=== PATIENT | male | born 1965 | race Hispanic/Latino ===

== ENCOUNTER 2018-06-14 12:58 | Emergency (ER) | payer BC, SELFPAY ==
[2018-06-14 12:59] VITALS: BP 159/83; PULSE 84; RESP 18; TEMP 36.4; O2SAT 99; BMI 42.5
--- NOTE | 2018-06-14 13:46 | CT_ITS ---
STUDY: CT ABDOMEN AND PELVIS WITHOUT CONTRAST REASON FOR EXAM: Male, 53 years old. Abdominal pain and nausea x2 days RADIATION DOSAGE (If Supplied By Facility): CTDIvol = ( 14.80 ) mGy, DLP = ( 844.46 ) mGycm TECHNIQUE: Transaxial images were obtained from the dome of the diaphragm to the symphysis pubis without oral contrast, and without intravenous contrast. Sagittal and coronal images were reconstructed. Individualized dose optimization techniques were used for this CT. COMPARISON: None. FINDINGS: There are chronic interstitial fibrotic changes of the lung bases. The visualized portions of the heart are within normal limits. There is decreased attenuation of the liver consistent with steatosis. Normal gallbladder and extrahepatic biliary system. Normal spleen. Normal pancreas. Normal bilateral adrenal glands. Normal right kidney. Normal left kidney. Normal visualized stomach. Normal small intestine. Scattered colonic diverticulosis noted. There is thickening of the mid sigmoid colon with pericolonic inflammation consistent with acute reticulitis. No perforation or abscess noted. An underlying lesion however cannot be excluded due to the thickening of the sigmoid and further evaluation with colonoscopy would be recommended once the acute inflammatory changes have resolved. There is non-visualization of the appendix. Normal abdominal aorta. Normal inferior vena cava. Normal retroperitoneum. Normal urinary bladder. Small fat-containing inguinal hernias noted. Normal osseous structures. CT/Abdomen/Pelvis without Cont IMPRESSION: Acute sigmoid diverticulitis Diffuse fatty infiltration of the liver, no discrete lesion N.B. : The above information has been verbally conveyed by Andrés Kang MD to Manuela Watson, Covering Physician, on 06/14/2018 15:14:52 (ET). Electronically Signed: Andrés Kang MD at 15:15 EDT , Service support ,
--- NOTE | 2018-06-14 13:49 | ED.DCSUM_ITS ---
- ER Visit Summary Date of Service: 06/14/18 Chief Complaint: [Abdominal pain] History of Present Illness: The patient is a 53 M [who presents the emergency department with 2 days of lower abdominal pain. Bowel movements have been normal no nausea or vomiting no fevers or chills. He has had similar symptoms in the past that have been mild but this 1 seems to be more severe. He did have an episode 1 month ago where he had a infection where he have to go to the bathroom, it was treated and went away.] Physical Examination: [] Pressure 159/83 WN WD NAD PERRL EOMI MMM NECK supple and nontender, no masses RRR no murmur rub or gallop, no peripheral edema, symmetric radial pulses CTAB no respiratory distress ABDOMEN is soft, he has suprapubic and left lower quadrant tenderness to palpation, normal bowel sounds, no distension, no rebound or guarding SKIN is warm and dry no rashes Alert and Oriented x3, CN II-XII in tact, no motor or sensory deficits, gait normal No lymphadenopathy Test Results: [] Emergency Department Course and Treatment: [] Treatment Plan: [] Disposition: [] Impression: [] This note was generated with [employer] dictation software. It may contain incorrect words, spelling, and punctuation that were not noted in review of the chart prior to signing ED Disposition - Plan for ED Patient: Chief Complaint: Abd Pain Referrals: Care Physician,No Primary [Primary Care Provider] -
[2018-06-14] MEDS: 0.9% Normal Saline 1,000 ML 1000 ML IV (14:22)
[2018-06-14] MEDS: Ketorolac 30 MG/ML Syringe IV (14:22)
[2018-06-14] MEDS: Ondansetron 4 MG/2 ML Vial IV (14:22)
[2018-06-14 14:23] LABS: Absolute Lymphocyte Count 1.14 X10^3/ul (0.83-4.51); Absolute Neutrophil Count 3.5 X10^3/uL (2.0-7.7); Basophil# 0.02 X10^3/uL; Basophil% 0.4 % (0-1); Eosinophil# 0.08 X10^3/uL; Eosinophils% 1.5 % (0-5); Hematocrit 47.3 % (40-54); Lymphocyte # 1.14 X10^3/ul (4.0); Lymphocyte % 21.3 % (19-41); Mean Corp Hgb Conc 33.8 g/gl (32-36); Mean Corpuscular Hgb 31.8 pg (27.0-32.0); Mean Platelet Vol. 10.3 fl (6.2-12.0); Monocyte% 11.2 % (0-10); Neutrophil # 3.49 X10^3/uL (2.7-7.7); Neutrophil % 65.4 % (47-70); Platelet Count 167 K/mm3 (150-450); RBC Distribution Width CV 12.7 % (11.6-14.6); RBC Distribution Width SD 43.6 fl (35.1-43.9); Red Blood Count 5.03 M/mm3 (4.6-6.2); White Blood Count 5.3 K/mm3 (4.4-11.0)
[2018-06-14 14:30] LABS: POSITIVE COUNT NO; POSITIVE DIFFERENTIAL NO; POSITIVE MORPHOLOGY NO
[2018-06-14 14:39] LABS: ALB/GLOB Ratio 0.7 RATIO (0.9-2.4); AST(SGOT) 28 U/L (15-37); Alanine Aminotransfer ALT/SGPT 51 U/L (16-61); Albumin, Serum 3.3 g/dL (3.2-5.0); Alkaline Phosphatase 75 U/L (45-117); Anion Gap 7 (5-15); BUN 11 mg/dL (7-18); BUN/Creat Ratio 15.2 RATIO (10-20); Calcium,Total 8.6 mg/dL (8.5-10.1); Chloride 106 mmol/L (98-107); Creatinine, Serum 0.72 mg/dL (0.70-1.30); EST Glomerular Filtration Rate 122 mL/min (>60); Est Glom Filt Rate - Afr Amer 147 mL/min (>60); Estimated Creatinine Clearance 117.43 ml/min; Globulin 4.8 g/dL (2.2-4.2); Glucose 89 mg/dL (74-106); Lipase 151 U/L (73-393); Protein, Total 8.1 g/dL (6.4-8.2); Sodium Level 140 mmol/L (136-145)
--- NOTE | 2018-06-14 15:18 | ED.DEP ---
ED Disposition - Plan for ED Patient: Chief Complaint: Abd Pain Instructions: ED Diverticulitis Prescriptions: Hydrocodone Bitart/Apap 5-325 [[place] 5MG-325MG] 1 tablet PO Q6H PRN PRN 3 Days #7 tablet PRN Reason: Pain Metronidazole [Flagyl] 500 mg PO Q8H 10 Days tablet Ciprofloxacin [Cipro] 500 mg PO BID #20 tablet Referrals: Your, doctor [Other] - 3-5 Days
--- NOTE | 2018-06-14 15:21 | DCINST.ED_ITS ---
ED Disposition - Plan for ED Patient: Chief Complaint: Abd Pain Instructions: ED Diverticulitis Prescriptions: Hydrocodone Bitart/Apap 5-325 [[place] 5MG-325MG] 1 tablet PO Q6H PRN PRN 3 Days # 7 tablet PRN Reason: Pain Metronidazole [Flagyl] 500 mg PO Q8H 10 Days tablet Ciprofloxacin [Cipro] 500 mg PO BID #20 tablet Referrals: Your, doctor [Other] - 3-5 Days
[2018-06-14 15:41] VITALS: BP 137/93; PULSE 79; RESP 16; O2SAT 100
== END 2018-06-14 15:44 | disposition home or self-care (01) ==
PROVIDERS: Emergency Provider Emergency Medicine
DX: K57.32 Diverticulitis of large intestine without perforation or abscess without bleeding (principal); E66.9 Obesity, unspecified
CPT/HCPCS: 74176; 80053; 83690; 85025; 96361; 96374; 96375; 99283; J7030; A4216; J2405

== ENCOUNTER → 2019-03-21 | Outpatient (CLI) | payer OTHER, SELFPAY ==
[2019-03-21 15:50] VITALS: BMI 40.3
--- NOTE | 2019-03-21 16:01 | RAD_ITS ---
STUDY: X-RAY - RIGHT KNEE REASON FOR EXAM: Male, 53 years old. Pain. Injury. TECHNIQUE: 4 view(s) of the knee. COMPARISON: None. FINDINGS: Normal visualized distal femur. Normal visualized proximal tibia and fibula. Normal proximal tibiofibular articulation. There is severe degenerative arthrosis of the medial femorotibial compartment with severe joint space narrowing. There is mild degenerative arthrosis of the lateral femorotibial compartment. There is moderate degenerative arthrosis of the patellofemoral articulation. There is a moderate volume joint effusion. The soft tissue structures are unremarkable. RAD/Knee 4 or More Views IMPRESSION: Degenerative arthrosis. Joint effusion. Electronically Signed: Marybeth Graham MD at 16:23 EDT Tel , Service support ,
== END | disposition home or self-care (01) ==
LOC: HPRAD 15:58
PROVIDERS: Referring Provider Physician Assistant; Visit Provider Physician Assistant
DX: M25.561 Pain in right knee (principal)
CPT/HCPCS: 73564

== ENCOUNTER 2020-01-09 18:34 | Emergency (ER) | payer OTHER, SELFPAY ==
[2019-03-28 15:01] VITALS: BMI 40.3
[2020-01-09 18:53] VITALS: BP 158/98; PULSE 85; RESP 17; TEMP 36.4; O2SAT 95; BMI 40.7
[2020-01-09 19:19] VITALS: RESP 16
--- NOTE | 2020-01-09 19:47 | ED.RN ---
pt works for [employer]. They require a drug screen and follow up is with [facility]. [facility] was made aware.
[2020-01-09] MEDS: Diphth,Pertuss(Acell),Tet Vac 0.5 ML Vial IM (20:54)
--- NOTE | 2020-01-09 21:59 | ED.VISSUMM ---
- ER Visit Summary Date of Service: 01/09/20 Chief Complaint: Left hand laceration History of Present Illness: The patient is a 54 M who presents with a left hand laceration that occurred today while at work. Patient was using a saw and accidentally cut his left hand. Patient is right-hand dominant. Patient describes his pain as aching. Patient denies any paresthesias or weakness. Patient is unsure of his last tetanus. Patient denies any other injuries. Physical Examination: Vital signs are stable. Patient is afebrile. Patient is in no acute distress. Musculoskeletal exam reveals a 6 cm full-thickness linear laceration over the dorsal aspect of the left hand. The wound was explored. There are no foreign bodies noted. There are no tendon lacerations. There is no bony involvement. Sensation was intact to light touch in all digits. Capillary refill was less than 2 seconds in all digits. Strength is 5/5 in flexion and extension of the MP, PIP, and DIP joints of the left index finger and left thumb. Emergency Department Course and Treatment: The wound was cleaned and irrigated with copious amounts normal saline. The wound was anesthetized 1% lidocaine with epinephrine. The wound was closed with 5 simple interrupted #4-0 horizontal mattress sutures under sterile technique. Patient was given a dose of Keflex. Patient was given a prescription for Keflex. Patient was instructed to keep the wound clean and dry. Patient was instructed to follow-up with his primary care physician in 7 days for wound recheck and suture removal. Patient understood and was agreeable with the plan. All questions were answered. Disposition: Discharge home Impression: Left hand laceration This note was generated with [employer] dictation software. It may contain incorrect words, spelling, and punctuation that were not noted in review of the chart prior to signing ED Disposition - Plan for ED Patient: Disposition: Home or Assisted Living Diagnosis: Laceration of left hand Instructions: LACERATION, Extrem (Suture, Staple or Tape) Prescriptions: Cephalexin [Keflex] 500 mg PO Q6 #40 cap Prescription Printed Referrals: Care Physician,No Primary [Primary Care Provider] - [facility] [GROUP OF PHYSICIANS] - 7 Days for suture removal
[2020-01-09] MEDS: Cephalexin 250 MG Capsule 500 MG PO (22:08)
[2020-01-09 22:11] VITALS: RESP 16
== END 2020-01-09 22:12 | disposition home or self-care (01) ==
PROVIDERS: Emergency Provider Emergency Medicine
DX: S61.412A Laceration without foreign body of left hand, initial encounter (principal); M54.9 Dorsalgia, unspecified; R51 Headache; E66.9 Obesity, unspecified; W27.0XXA Contact with workbench tool, initial encounter; Y93.9 Activity, unspecified; Y92.9 Unspecified place or not applicable
CPT/HCPCS: 12002; 90471; 90715; 99285

== ENCOUNTER → 2023-10-31 | Outpatient (CLI) | payer BC, SELFPAY ==
[2023-10-31 17:21] LABS: Bacteria 0 SEEN /hpf (None Seen); Mucous, Urine 0 SEEN /hpf (<or=2+); Red Blood Cells-Urine 0 SEEN /hpf (0-5); Squamous Epithelial Cells - UA 0 SEEN /hpf (0-5); White Blood Cells 0 SEEN /hpf (0-5)
[2023-10-31 17:45] LABS: Color, Urine Yellow (Yellow); Glucose, Dipstick Normal (Normal); Ketone-Dipstick Negative (Negative); Leukocyte Esterase-Dipstick Negative /ul (Negative); Nitrite-Dipstick Negative (Negative); Occult Blood-Urine Negative /ul (Negative); Protein-Dipstick Negative (Negative); Urine Bilirubin Dipstick Negative (Negative); Urine Clarity Clear (Clear); Urine Urobilinogen Normal (Normal)
== END | disposition home or self-care (01) ==
PROVIDERS: Visit Provider Physician Assistant
DX: R30.0 Dysuria (principal)
CPT/HCPCS: 81001; 87086

== ENCOUNTER → 2023-11-16 | Outpatient (CLI) | payer BC, SELFPAY ==
[2023-11-16 18:12] LABS: Hemoglobin A1c 5.4 % (3.8-5.6)
== END | disposition home or self-care (01) ==
PROVIDERS: Referring Provider Physician Assistant Surgical; Visit Provider Physician Assistant Surgical
DX: R30.0 Dysuria (principal)
CPT/HCPCS: 36415; 83036; 87086; 87088

== ENCOUNTER 2024-02-20 06:56 | Day surgery (SDC) | payer BC, SELFPAY ==
--- NOTE | 2024-02-20 07:10 | H&P.OPEN ---
[facility] - General General Date of Service: 02/20/24 HPI Narrative JERRI CASILLAS, is a 58 M who presents for screening colonoscopy. Patient is German-speaking, patient's niece interprets and his sister is also present. Patient has never had previous colonoscopy. Patient denies any family history of colon cancer. Patient has bowel movements daily to every other day denies any blood. Patient denies any chronic abdominal pain/nausea/vomiting/reflux. Patient did have hemorrhoids which sound like they were previously banded-otherwise no other abdominal surgeries. [facility] Medical History (Updated 02/17/24 @ 14:06 by Anastasia Bhandari) Acute hemorrhoid Acute sinusitis Arthritis Blunt injury, left eye Chronic neck and back pain Conjunctivitis, left eye Contact with or suspected exposure to other viral communicable disease Depression Dysuria Infected pilonidal cyst Knee pain Leg cramps Limb weakness Migraine headache Non-Albanian speaking patient Non-smoker Seizures Shoulder pain Home Medications NK 01/04/24 [History Last Taken Unknown] Allergy/AdvReac Type Severity Reaction Status Date / Time No Known Allergies Allergy Verified 02/20/24 07:22 Surgical History (Updated 02/17/24 @ 13:43 by Anastasia Bhandari) No pertinent past surgical history Social History (Updated 01/04/24 @ 09:02 by Nette Mc) household members: family current occupational status: employed Smoking Status: Never smoker alcohol intake: former substance use type: does not use Past Medical/Surgical History Planned Operation Planned Operative Procedure/s: COLONOSCOPY Previous Hospitalizations/Surgeries HX Hospitalizations: No Any Problems With Anesthesia: No You/Your Family Experience Fever (Hyperthermia) With Anes: No Cholinesterase deficiency: No Cardiovascular Hx Hypertension: No Respiratory Hx Sleep Apnea: No Hx Respiratory Tract Infection/Cold (presently): No Do You Snore Loudly (louder than talking or can be heard): Yes Do You Often Feel Tired/ Fatigued/ Sleepy Dring Daytime?: No Has Anyone Observed You Stop Breathing During Sleep?: No Result (for STOP score): Negative Smoking Status: Never smoker Neurological Does patient have nerve stimulator: No Allergies No Known Allergies Allergy (Verified 02/20/24 07:22) Discharge Is Pt Admitted From a Prison, or a Retirement: No Who Could Help: NIECE After D/C, Where Do you Plan to Go: Return Home Physical Exam Const alert, oriented x3 and no apparent distress HEENT normocephalic and head/scalp atraumatic Resp normal respiratory effort Cardio regular rate GI soft to palpation and non-tender; Negative for non-distended Palpation: Negative for guarding Extremity no clubbing, cyanosis or edema Skin no rashes or lesions noted Neuro CN's II-XII intact bilaterally Psych mental status grossly normal Assessment & Plan Assessment/Plan (1) Encounter for screening for malignant neoplasm of colon: Surgery Risks - Colonoscopy I discussed with the patient the risks of the procedure: Yes Risks Include but are not Limited To: Risks include but are not limited to: Bleeding, perforation requiring further surgery, inability to complete colonoscopy requiring barium enema.
[2024-02-20 07:20] VITALS: BP 143/97; PULSE 73; RESP 16; TEMP 36.9; O2SAT 94; BMI 44.3
[2024-02-20] MEDS: Lactated Ringers 1,000 ML 15 ML IV (07:24)
--- NOTE | 2024-02-20 08:48 | OP.CCLET_ITS ---
02/20/2024 No Primary Care Physician Re : Colonoscopy procedure for Santos Whitehead Dear Care Physician This procedure was performed on Tuesday, February 20, 2024. My impressions and recommendations are as follows: Impressions : - Preparation of the colon was poor. - Hemorrhoids found on perianal exam. - Stool in the rectum. - No specimens collected. Recommendations : - Discharge patient to home. - Resume previous diet. - Continue present medications. - Repeat colonoscopy at appointment to be scheduled for screening purposes. My findings are described in the full procedure note, which is enclosed. If I can be of further assistance, please feel free to contact me at Doctor phone number(s): , Work: . Sincerely, MD Renee De Paz MD 02/20/2024 8:47:59 AM This report has been signed electronically.
--- NOTE | 2024-02-20 08:48 | OP.COLON_ITS ---
Patient Name: Santos Whitehead Procedure Date: 02/20/2024 8:33 AM Date of : 1965 Age: 58 Procedure: Colonoscopy Indications: Screening for colorectal malignant neoplasm Providers: Renee Gordillo MD Referring MD: Renee Gordilol MD Medicines: Monitored Anesthesia Care Patient Profile: This is a 58 year old male. Last Colonoscopy: none. The patient's first colonoscopy is today. Complications: No immediate complications. Procedure: Pre-Anesthesia Assessment: - Prior to the procedure, a History and Physical was performed, and patient medications and allergies were reviewed. The patient's tolerance of previous anesthesia was also reviewed. The risks and benefits of the procedure and the sedation options and risks were discussed with the patient. All questions were answered, and informed consent was obtained. Prior Anticoagulants: The patient has taken no anticoagulant or antiplatelet agents. ASA Grade Assessment: Per anesthesia. After reviewing the risks and benefits, the patient was deemed in satisfactory condition to undergo the procedure. After I obtained informed consent, the scope was passed under direct vision. Throughout the procedure, the patient's blood pressure, pulse, and oxygen saturations were monitored continuously. The Colonoscope was introduced through the anus and advanced to the rectum. The colonoscopy was performed without difficulty. The patient tolerated the procedure well. The quality of the bowel preparation was poor. Scope In: 8:40:38 AM Scope Out: 8:41:11 AM Total Procedure Duration Time 0 hours 0 minutes 33 seconds Findings: Hemorrhoids were found on perianal exam. Solid stool was found in the rectum, precluding visualization. Impression: - Preparation of the colon was poor. - Hemorrhoids found on perianal exam. - Stool in the rectum. - No specimens collected. Recommendation: - Discharge patient to home. - Resume previous diet. - Continue present medications. - Repeat colonoscopy at appointment to be scheduled for screening purposes. Procedure Code(s): --- Professional --- G0121, 53,PT, Colorectal cancer screening; colonoscopy on individual not meeting criteria for high risk Diagnosis Code(s): --- Professional --- Z12.11, Encounter for screening for malignant neoplasm of colon K64.9, Unspecified hemorrhoids CPT copyright 2021 [employer]. All rights reserved. The codes documented in this report are preliminary and upon it software engineer review may be revised to meet current compliance requirements. MD Renee De Paz MD 02/20/2024 8:47:59 AM This report has been signed electronically. Number of Addenda: 0 Note Initiated On: 02/20/2024 8:33 AM
[2024-02-20 08:53] VITALS: BP 138/91; BP 143/97; PULSE 66; RESP 20; TEMP 36.4; O2SAT 93
[2024-02-20 08:55] VITALS: BP 128/73; BP 143/97; PULSE 69; RESP 14; O2SAT 92
[2024-02-20 09:00] VITALS: BP 131/96; BP 143/97; PULSE 70; RESP 18; O2SAT 92
[2024-02-20 09:09] VITALS: BP 130/94; BP 143/97; PULSE 72; RESP 18; TEMP 37; O2SAT 92
[2024-02-20 09:38] LABS: Bacteria 0 SEEN /hpf (None Seen); Mucous, Urine 0 SEEN /hpf (<or=2+); Red Blood Cells-Urine 0 SEEN /hpf (0-5); White Blood Cells 0 SEEN /hpf (0-5)
[2024-02-20 09:44] VITALS: BP 143/97
[2024-02-20 09:53] LABS: Color, Urine Yellow (Yellow); Glucose, Dipstick Normal (Normal); Ketone-Dipstick Negative (Negative); Leukocyte Esterase-Dipstick 25 /ul (Negative); Nitrite-Dipstick Negative (Negative); Occult Blood-Urine Negative /ul (Negative); Protein-Dipstick 15 mg/dl (Negative); Specific Gravity, Urine 1.015 (1.002-1.030); Urine Bilirubin Dipstick Negative (Negative); Urine Clarity Clear (Clear); Urine Urobilinogen Normal (Normal)
[2024-02-20 10:09] LABS: Squamous Epithelial Cells - UA 0-5 SEEN /hpf (0-5)
== END 2024-02-20 09:52 | disposition home or self-care (01) ==
LOC: EN 07:00 → AC 07:00
PROVIDERS: Referring Provider Surgery; Visit Provider Surgery
PROC: 0DJD8ZZ Inspection of Lower Intestinal Tract, Via Natural or Artificial Opening Endoscopic (ICD-10-PCS; CPT 45378; principal; 2024-04-23 08:55)
DX: Z12.11 Encounter for screening for malignant neoplasm of colon (principal); R30.0 Dysuria; K64.4 Residual hemorrhoidal skin tags
CPT/HCPCS: 45378; 81001; J7120; J2405

== ENCOUNTER 2024-04-23 07:35 | Day surgery (SDC) | payer BC, SELFPAY ==
[2024-04-23 07:57] VITALS: BP 146/91; PULSE 71; RESP 16; TEMP 36.3; O2SAT 95; BMI 44.1
--- NOTE | 2024-04-23 08:13 | H&P.OPEN ---
[facility] - General General Date of Service: 04/23/24 [facility] Narrative JERRI CASILLAS, is a 58 M who presents for screening colonoscopy. Last time patient did not complete the prep there was some confusion only had clear liquids but did not do any laxatives. Patient did do the laxative this time. Patient did get some antibiotics due to symptomatic dysuria which was seem to be his main complaint last time, patient may still have a little bit dysuria but much improved. Patient never did get a primary care doctor again we will plan to give them a list to get that set up. Patient's nephew is interpreting for the patient who is Lao-speaking. 02/20/24--[facility] JERRI CASILLAS, is a 58 M who presents for screening colonoscopy. Patient is Lao-speaking, patient's niece interprets and his sister is also present. Patient has never had previous colonoscopy. Patient denies any family history of colon cancer. Patient has bowel movements daily to every other day denies any blood. Patient denies any chronic abdominal pain/nausea/vomiting/reflux. Patient did have hemorrhoids which sound like they were previously banded-otherwise no other abdominal surgeries. [facility] Medical History Non-Japanese speaking patient Depression Arthritis Migraine headache Leg cramps Non-smoker Contact with or suspected exposure to other viral communicable disease Acute sinusitis Dysuria Blunt injury, left eye Conjunctivitis, left eye Seizures Infected pilonidal cyst Knee pain Shoulder pain Chronic neck and back pain Acute hemorrhoid Limb weakness Home Medications ?Medication ?Instructions ?Recorded ?Last Taken ?Type NK 04/17/24 Unknown History Allergy/AdvReac Type Severity Reaction Status Date / Time No Known Allergies Allergy Verified 04/17/24 12:22 Surgical History No pertinent past surgical history Social History (Updated 01/04/24 @ 09:02 by Nette Mc) household members: family current occupational status: employed Smoking Status: Never smoker alcohol intake: former substance use type: does not use Past Medical/Surgical History Planned Operation Planned Operative Procedure(s): CSCOPE Previous Hospitalizations/Surgeries HX Hospitalizations: No Any Problems With Anesthesia: No You/Your Family Experience Fever (Hyperthermia) With Anes: No Cholinesterase deficiency: No Cardiovascular Hx Hypertension: No Respiratory Hx Sleep Apnea: No Hx Respiratory Tract Infection/Cold (presently): No Do You Snore Loudly (louder than talking or can be heard): No Do You Often Feel Tired/ Fatigued/ Sleepy Dring Daytime?: No Has Anyone Observed You Stop Breathing During Sleep?: No Result (for STOP score): Negative Smoking Status: Never smoker Neurological Does patient have nerve stimulator: No Miscellaneous Recent Exposure to Contagious Disease: No Allergies No Known Allergies Allergy (Verified 04/17/24 12:22) Discharge Is Pt Admitted From a Retirement, or a Retirement: No After D/C, Where Do you Plan to Go: Return Home Vital Signs Vital Signs Vital Signs: 04/23/24 07:57 04/23/24 07:57 Temperature 97.3 F L Temperature Source Temporal Pulse Rate 71 Respiratory Rate 16 Respiratory Pattern Normal Blood Pressure 146/91 H Blood Pressure Mean 109 Blood Pressure Source Monitor Blood Pressure Position Semi-Fowlers Blood Pressure Location Left Arm Pulse Ox 95 Oxygen Delivery Method Room Air Weight Weight: 273 lb 5.971 oz Body Mass Index (BMI) 44.1 Physical Exam Const alert, oriented x3 and no apparent distress HEENT normocephalic and head/scalp atraumatic Resp normal respiratory effort Cardio regular rate GI soft to palpation and non-tender; Negative for non-distended Palpation: Negative for guarding Extremity no clubbing, cyanosis or edema Skin no rashes or lesions noted Neuro CN's II-XII intact bilaterally Psych mental status grossly normal Assessment & Plan Assessment/Plan (1) Encounter for screening for malignant neoplasm of colon: Surgery Risks - Colonoscopy I discussed with the patient the risks of the procedure: Yes Risks Include but are not Limited To: Risks include but are not limited to: Bleeding, perforation requiring further surgery, inability to complete colonoscopy requiring barium enema.
--- NOTE | 2024-04-23 08:17 | SUR.PREOP ---
pt speaks and understands little hungarian. nephew present and pt requests for him to interpret for him.
[2024-04-23] MEDS: Lactated Ringers 1,000 ML 15 ML IV (08:18)
--- NOTE | 2024-04-23 09:00 | COLBX_PTH ---
PATIENT: JERRI HUGHES LOC: EN U#:[id number] AGE/SX: 58/M ROOM: RE04/23/[address]: Dr. Renee Gordillo MD : 1965 BED: DIS: 04/23/2024 SPEC #: [id number] RECD: 04/23/24 10:19 STATUS: MARKO AUGUSTIN #: [id number] KULWANT: 04/23/24 09:[address]: Renee Gordillo DEPT: SURGICAL PATHOLOGY RECD BY: Latoya Hyde ENTERED: 04/23/24 11:35 SP TYPE: COLON BX OTHR DR: No Primary Care Phys Tissues: A - Gastric mucous membrane B - Transverse colon C - Rectum, NOS Procedures: Surgery Specimen Level IV HEADER OPERATION: Colonoscopy with polypectomy PRE-OP DIAGNOSIS: Screening TISSUE SUBMITTED: A- Hepatic flexure polyp, B- Transverse colon polyp, C- Rectal polyp MICROSCOPIC DIAGNOSIS A. Colonic polyp at hepatic flexure, biopsy: Fragments of colonic mucosa with focal hyperplastic change and cautery artifact. B. Transverse colon polyp, biopsy: Polypoid fragments of benign colonic mucosa. See comment. C. Rectal polyp, biopsy: Focal minimal hyperplastic change. AM/ 04/24/2024 COMMENT B. Neither hyperplastic nor adenomatous change is identified. Clinical correlation is suggested. MICROSCOPIC DESCRIPTION Slides are reviewed. GROSS DESCRIPTION A. Received in fixative is one container labeled with the patient's name and designated Hepatic flexure polyp. The specimen consists of multiple irregular fragments of light plascencia soft tissue that in aggregate measure 0.3 x 0.2 x 0.1 cm. The specimen is totally submitted in one cassette. B. Received in fixative is one container labeled with the patient's name and designated Transverse polyp. The specimen consists of two irregular fragments of light plascencia soft tissue that in aggregate measure 0.4 x 0.3 x 0.1 cm. The specimen is totally submitted in one cassette. C. Received in fixative is one container labeled with the patient's name and designated Rectal polyp. The specimen consists of one irregular fragment of light plascenica soft tissue that measures 0.3 x 0.3 x 0.1 cm. The specimen is totally submitted in one cassette. Celeste 04/23/2024 TC:5 CPT:29922l2
[2024-04-23 09:08] VITALS: BP 145/106; BP 146/91; PULSE 73; RESP 16; TEMP 36.9; O2SAT 95
--- NOTE | 2024-04-23 09:09 | OP.CCLET_ITS ---
04/23/2024 No Primary Care Physician Re : Colonoscopy procedure for Santos Whitehead Dear Care Physician This procedure was performed on Tuesday, April 23, 2024. My impressions and recommendations are as follows: Impressions : - Two less than 5 mm polyps in the rectum and in the transverse colon, removed with a cold biopsy forceps. Resected and retrieved. - One less than 5 mm polyp at the hepatic flexure, removed with a hot snare. Resected and retrieved. - Diverticulosis in the sigmoid colon. - The examination was otherwise normal on direct and retroflexion views. Recommendations : - Discharge patient to home. - High fiber diet. - Continue present medications. - Await pathology results. - Repeat colonoscopy in 5 years for surveillance based on pathology results. My findings are described in the full procedure note, which is enclosed. If I can be of further assistance, please feel free to contact me at Doctor phone number(s): , Work: . Sincerely, MD Renee De Paz MD 04/23/2024 9:09:05 AM This report has been signed electronically.
--- NOTE | 2024-04-23 09:09 | OP.COLON_ITS ---
Patient Name: Santos Whitehead Procedure Date: 04/23/2024 8:33 AM Date of : 1965 Age: 58 Procedure: Colonoscopy Indications: Screening for colorectal malignant neoplasm Providers: Renee Gordillo MD Referring MD: No Primary Care Physician Medicines: Monitored Anesthesia Care Patient Profile: This is a 58 year old male. Last Colonoscopy: none. The patient's first colonoscopy is today. Complications: No immediate complications. Procedure: Pre-Anesthesia Assessment: - Prior to the procedure, a History and Physical was performed, and patient medications and allergies were reviewed. The patient's tolerance of previous anesthesia was also reviewed. The risks and benefits of the procedure and the sedation options and risks were discussed with the patient. All questions were answered, and informed consent was obtained. Prior Anticoagulants: The patient has taken no anticoagulant or antiplatelet agents. ASA Grade Assessment: Per anesthesia. After reviewing the risks and benefits, the patient was deemed in satisfactory condition to undergo the procedure. After I obtained informed consent, the scope was passed under direct vision. Throughout the procedure, the patient's blood pressure, pulse, and oxygen saturations were monitored continuously. The Colonoscope was introduced through the anus and advanced to the cecum, identified by the appendiceal orifice, ileocecal valve and palpation. The colonoscopy was performed without difficulty. The patient tolerated the procedure well. The quality of the bowel preparation was good. Scope In: 8:38:30 AM Scope Withdrawal Time 0 hours 19 minutes 46 seconds Scope Out: 9:02:51 AM Total Procedure Duration Time 0 hours 24 minutes 21 seconds Findings: The perianal and digital rectal examinations were normal. Two sessile and semi-pedunculated polyps were found in the rectum and transverse colon. The polyps were less than 5 mm in size. These polyps were removed with a cold biopsy forceps. Resection and retrieval were complete. A less than 5 mm polyp was found in the hepatic flexure. The polyp was semi-pedunculated. The polyp was removed with a hot snare. Resection and retrieval were complete. Scattered small-mouthed diverticula were found in the sigmoid colon. The exam was otherwise without abnormality on direct and retroflexion views. Impression: - Two less than 5 mm polyps in the rectum and in the transverse colon, removed with a cold biopsy forceps. Resected and retrieved. - One less than 5 mm polyp at the hepatic flexure, removed with a hot snare. Resected and retrieved. - Diverticulosis in the sigmoid colon. - The examination was otherwise normal on direct and retroflexion views. Recommendation: - Discharge patient to home. - High fiber diet. - Continue present medications. - Await pathology results. - Repeat colonoscopy in 5 years for surveillance based on pathology results. Procedure Code(s): --- Professional --- 34516, PT, Colonoscopy, flexible; with removal of tumor(s), polyp(s), or other lesion(s) by snare technique [id number], 59, Colonoscopy, flexible; with biopsy, single or multiple Diagnosis Code(s): --- Professional --- Z12.11, Encounter for screening for malignant neoplasm of colon D12.8, Benign neoplasm of rectum D12.3, Benign neoplasm of transverse colon (hepatic flexure or splenic flexure) K57.30, Diverticulosis of large intestine without perforation or abscess without bleeding CPT copyright 2021 [employer]. All rights reserved. The codes documented in this report are preliminary and upon com writer review may be revised to meet current compliance requirements. MD Renee De Paz MD 04/23/2024 9:09:05 AM This report has been signed electronically. Number of Addenda: 0 Note Initiated On: 04/23/2024 8:33 AM
[2024-04-23 09:10] VITALS: BP 146/91; BP 148/111; PULSE 75; RESP 16; O2SAT 91
[2024-04-23 09:15] VITALS: BP 146/91; BP 149/104; PULSE 73; RESP 16; O2SAT 93
[2024-04-23 09:20] VITALS: BP 146/91; BP 147/103; PULSE 69; RESP 16; TEMP 36.8; O2SAT 95
[2024-04-23 09:56] VITALS: BP 146/91
== END 2024-04-23 10:05 | disposition home or self-care (01) ==
LOC: EN 07:39 → AC 07:41
PROVIDERS: Visit Provider Surgery
PROC: 0DJD8ZZ Inspection of Lower Intestinal Tract, Via Natural or Artificial Opening Endoscopic (ICD-10-PCS; CPT 45378; principal; 2024-04-23 08:55)
DX: Z12.11 Encounter for screening for malignant neoplasm of colon (principal); K63.5 Polyp of colon; K57.30 Diverticulosis of large intestine without perforation or abscess without bleeding; K62.1 Rectal polyp; D12.3 Benign neoplasm of transverse colon
CPT/HCPCS: 45380; 45385; 88305; J7120; J2405